=== PATIENT | female | born 1955 | race Caucasian/White ===

== ENCOUNTER → 2024-01-17 | Outpatient (CLI) | payer BC | LOC: COL.RAD 12:21 | DX: M51.16 Intervertebral disc disorders with radiculopathy, lumbar region (principal); M50.10 Cervical disc disorder with radiculopathy, unspecified cervical region; M48.02 Spinal stenosis, cervical region; M47.22 Other spondylosis with radiculopathy, cervical region; G44.209 Tension-type headache, unspecified, not intractable; R29.2 Abnormal reflex ==

== ENCOUNTER 2024-04-25 11:15 | Outpatient (RCR) | payer BC | END 2024-04-29 | disposition home or self-care (01) | LOC: WSPT | DX: M47.812 Spondylosis without myelopathy or radiculopathy, cervical region (principal); G44.209 Tension-type headache, unspecified, not intractable; M48.02 Spinal stenosis, cervical region ==